=== PATIENT | male | born 1960 | race Caucasian/White ===

== ENCOUNTER → 2020-02-29 | Outpatient (CLI) | payer SELFPAY | END | disposition home or self-care (01) | LOC: COVID19 11:27 | PROVIDERS: ATTEND Family Medicine | DX: U07.1 COVID-19 (principal) ==

== ENCOUNTER → 2025-03-13 | Outpatient (CLI) | payer MEDICARE | END | disposition home or self-care (01) | LOC: US 08:30 | PROVIDERS: ATTEND Nurse Practitioner Family | DX: I72.3 Aneurysm of iliac artery (principal) ==

== ENCOUNTER → 2025-03-22 | Outpatient (CLI) | payer MEDICARE ==
[~2025-03-22] MED LIST: IOHEXOL 350 MG/ML 100 ML VIAL IV ONE; SODIUM CHLORIDE 0.9% 100 ML BAG IV ONE; SODIUM CHLORIDE 0.9% 100 ML IV ONE
== END | disposition home or self-care (01) ==
LOC: CT 07:36
PROVIDERS: ATTEND Nurse Practitioner Family
DX: I72.3 Aneurysm of iliac artery (principal); I70.0 Atherosclerosis of aorta; K76.0 Fatty (change of) liver, not elsewhere classified; N40.0 Benign prostatic hyperplasia without lower urinary tract symptoms; M25.78 Osteophyte, vertebrae; M47.815 Spondylosis without myelopathy or radiculopathy, thoracolumbar region; Z96.641 Presence of right artificial hip joint